=== PATIENT | female | born 1940 | race Caucasian/White ===

== ENCOUNTER 2018-01-06 15:18 | Emergency (ER) | payer MEDICARE ==
[2018-01-06 15:32] VITALS: BP 148/91; TEMP 96.9
--- NOTE | 2018-01-06 15:38 | ED ---
General Adult HPI - General Chief complaint: Fall Stated complaint: Fall Time Seen by Provider: 01/06/18 15:21 Source: patient, family Mode of arrival: EMS Limitations: altered mental status - History of Present Illness Initial comments: Patient 77-year-old female seen a few past medical history for dementia, presents into the emergency room today by EMS from [facility] with a chief complaint of a fall. Son at bedside providing history as patient does have history of dementia. He states that he was told by nursing staff that she tripped over a wheelchair. States that she did have a fall previously to the left hip and nursing staff was worried that she was having discomfort in this area. Patient essentially nonverbal and unable to provide further information. - Related Data Home Medications Medication Instructions Recorded Confirmed Aspirin 81 mg PO DAILY@0900 06/09/15 01/06/18 Atorvastatin [Lipitor] 20 mg PO DAILY@209906/09/15 01/06/18 Memantine HCl [Namenda Xr] 28 mg PO DAILY@0900 06/09/15 01/06/18 Multivitamins, Thera [Multivitamin 1 tab PO DAILY@0900 06/09/15 01/06/18 (formulary)] Donepezil [Aricept] 10 mg PO DAILY@209904/26/16 01/06/18 Acetaminophen [Tylenol 8 Hour] 650 mg PO TID 01/06/18 01/06/18 Acetaminophen [Tylenol Arthritis] 650 mg PO Q6H PRN 01/06/18 01/06/18 Cranberry Fruit Concentrate 450 mg PO DAILY@0900 01/06/18 01/06/18 [Cranberry] Lactose-Reduced Food [Ensure Plus] 1 can PO BID@1000,1500 01/06/18 01/06/18 Lactulose 20 gm PO Q12H PRN 01/06/18 01/06/18 Loratadine [Claritin] 10 mg PO DAILY PRN 01/06/18 01/06/18 Melatonin 3 mg PO HS@209901/06/18 01/06/18 busPIRone HCl [Buspar] 5 mg PO BID@0900,2100 01/06/18 01/06/18 Allergies Allergy/AdvReac Type Severity Reaction Status Date / Time No Known Allergies Allergy Verified 01/06/18 15:30 Review of Systems ROS Statement: Those systems with pertinent positive or pertinent negative responses have been documented in the HPI. ROS Other: All systems not noted in ROS Statement are negative. Past Medical History Past Medical History: Dementia, Hyperlipidemia, Hypertension, Neurologic Disorder History of Any Multi-Drug Resistant Organisms: None Reported Past Surgical History: Back Surgery Additional Past Surgical History / Comment(s): laminectomy 35 years ago Past Psychological History: Depression Smoking Status: Never smoker Past Alcohol Use History: None Reported Past Drug Use History: None Reported - Past Family History Mother Family Medical History: Dementia Additional Family Medical History / Comment(s): at 93yo Father Family Medical History: Coronary Artery Disease (CAD), Myocardial Infarction ([place] ) Additional Family Medical History / Comment(s): at 83yo General Exam - General Exam Comments Initial Comments: General: The patient is awake and alert. Eye: Pupils are equal, round and reactive to light, extra-ocular movements are intact. No nystagmus. There is normal conjunctiva bilaterally. No signs of icterus. Ears, nose, mouth and throat: There are moist mucous membranes and no oral lesions. Neck: The neck is supple. Cardiovascular: There is a regular rate and rhythm. No murmur, rub or gallop is appreciated. Respiratory: Lungs are clear to auscultation, respirations are non-labored, breath sounds are equal. No wheezes, stridor, rales, or rhonchi. Musculoskeletal: Normal ROM. Tender over T3-T4. No Tenderness to the lumbar or cervical spine. Strength 5/5. Sensation intact. Pulses equal bilaterally 2+. Neurological: There are no obvious motor or sensory deficits. Coordination appears grossly intact. Skin: Skin is warm and dry and no rashes or lesions are noted. Limitations: altered mental status Course Vital Signs 01/06/18 01/06/18 15:22 17:28 Temperature 96.9 F L Pulse Rate 87 63 Respiratory 18 20 Rate Blood Pressure 148/91 O2 Sat by Pulse 98 97 Oximetry Procedures - Procedures Initial comment: Laceration to the chin measuring approximately half centimeter. Was cleaned with saline and closed with Dermabond. Medical Decision Making - Medical Decision Making Patient's CT of the head and neck are negative for any abnormality. X-rays of the hip, thoracic and lumbar spine also reviewed and negative for any acute abnormalities. Patient has been Amer for here in the emergency room. Patient will be discharged home. Disposition Clinical Impression: Fall Disposition: HOME SELF-CARE Condition: Good Instructions: Laceration (ED) Additional Instructions: Please allow glue to fall off on its own over the next 2-5 days. Please follow- up with family doctor in the next 2 days. Please return to emergency room if the symptoms increase or worsen or for any other concerns. Is patient prescribed a controlled substance at d/c from ED?: No Referrals: Tommy Ocampo DO [Primary Care Provider] - 1-2 days Time of Disposition: 17:49
[2018-01-06] MEDS ORDERED: LORazepam 1 MG TAB PO STA (16:15)
--- NOTE | 2018-01-06 17:11 | CT ---
EXAMINATION TYPE: CT brain ruperto baum DATE OF EXAM: 01/06/2018 COMPARISON: CT brain 06/09/2015 HISTORY: Fell and hit head today. Headache. Neck pain CT DLP: 1278.4 mGycm Automated exposure control for dose reduction was used. TECHNIQUE: CT scan of the head and cervical spine are performed without contrast. FINDINGS: There is cerebral atrophy. There is no mass effect nor midline shift. There is no sign of intracranial hemorrhage. The calvarium is intact. The cervical vertebra have normal alignment. There is narrowing of disc spaces throughout the cervica l spine with spurring of the endplates. Posterior elements are intact. The skull base is intact. Ther e is no evidence of a fracture. There is probably mild spinal stenosis at C5-6 C6-7 due to posterior endplate spur formation. IMPRESSION: Cerebral atrophy. No acute intracranial abnormality. No change. Spondylotic changes in the cervical spine. No fracture.
[2018-01-06 17:29] VITALS: PULSE 63; RESP 20
--- NOTE | 2018-01-06 17:30 | XR ---
EXAMINATION TYPE: XR Hip LT and AP Pelvis DATE OF EXAM: 01/06/2018 COMPARISON: NONE HISTORY: Pain after fall TECHNIQUE: 3 views including pelvis x-ray FINDINGS: The pelvic ring is intact. Proximal femurs are intact. Sacroiliac joints are intact. Hip joint spaces are fairly well-maintained. I see no fracture. Impression no acute abnormality of the pelvis and left hip. No fracture.
--- NOTE | 2018-01-06 17:31 | XR ---
EXAMINATION TYPE: XR thoracic spine complete DATE OF EXAM: 01/06/2018 COMPARISON: NONE HISTORY: Pain after a fall back pain TECHNIQUE: 3 views FINDINGS: Thoracic vertebra have normal alignment. Disc spaces are fairly normal for age. Posterior e lements are intact. There is no paraspinal mass. I see no compression fracture. IMPRESSION: Negative thoracic spine exam.
--- NOTE | 2018-01-06 17:31 | XR ---
EXAMINATION TYPE: XR lumbar spine 2 or 3V DATE OF EXAM: 01/06/2018 COMPARISON: NONE HISTORY: Pain after fall TECHNIQUE: 3 views FINDINGS: There is almost 1 cm anterior subluxation of L4 in relation L5. There is degenerative disc space narrowing at L4-5 L5-S1 with vacuum disc. I see no compression fracture. The sacroiliac joints are intact. IMPRESSION: Spondylotic changes. Degenerative first-degree L4-5 spondylolisthesis. No fracture seen.
[2018-01-06] MEDS ORDERED: TOPICAL SKIN ADHESIVE 1 EACH AMP TOPICAL ONE (17:40)
== END 2018-01-06 18:38 | disposition home or self-care (01) ==
LOC: EC 15:18
DX: S01.81XA Laceration without foreign body of other part of head, initial encounter (principal); R41.82 Altered mental status, unspecified; E78.5 Hyperlipidemia, unspecified; I10 Essential (primary) hypertension; F03.90 Unspecified dementia, unspecified severity, without behavioral disturbance, psychotic disturbance, mood disturbance, and anxiety; Z79.82 Long term (current) use of aspirin; Z79.891 Long term (current) use of opiate analgesic; Z79.899 Other long term (current) drug therapy; W18.09XA Striking against other object with subsequent fall, initial encounter; Y92.099 Unspecified place in other non-institutional residence as the place of occurrence of the external cause
CPT/HCPCS: 12011; 70450; 72072; 72100; 72125; 73502; 99284

== ENCOUNTER 2018-09-12 11:25 | Emergency (ER) | payer MEDICARE, OTHER ==
[2018-09-12 11:48] VITALS: RESP 18; TEMP 97.1
[2018-09-12] MEDS ORDERED: SODIUM CHLORIDE 0.9% 500 ML 500 ML IV ONE (12:01)
--- NOTE | 2018-09-12 12:05 | ED ---
General Adult HPI - General Chief complaint: Neuro Symptoms/Deficit Stated complaint: Poss seizure Time Seen by Provider: 09/12/18 11:30 Source: EMS, RN notes reviewed Mode of arrival: EMS Limitations: no limitations - History of Present Illness Initial comments: This is a 78 her old female presents emergency department via EMS. According to the report from the snf patient is nonverbal so she is not able to contribute to her history. [facility] sent her in because yesterday she had some shaking of her legs and she slid down before she never lost consciousness and never hit her head or neck. Today she is more altered and combative so they decided to send her in. No one is with the patient give any further history at this time. - Related Data Home Medications Medication Instructions Recorded Confirmed Aspirin 81 mg PO DAILY@0900 06/09/15 09/12/18 Atorvastatin [Lipitor] 20 mg PO DAILY@2100 06/09/15 09/12/18 Memantine HCl [Namenda Xr] 28 mg PO DAILY@0900 06/09/15 09/12/18 Multivitamins, Thera [Multivitamin 1 tab PO DAILY@0900 06/09/15 09/12/18 (formulary)] Donepezil [Aricept] 10 mg PO DAILY@2100 04/26/16 09/12/18 Acetaminophen [Tylenol 8 Hour] 650 mg PO TID 01/06/18 09/12/18 Melatonin 3 mg PO HS@209901/06/18 09/12/18 busPIRone HCl [Buspar] 5 mg PO BID@0900,2100 01/06/18 09/12/18 Acetaminophen-Codeine 300-30mg 1 tab PO TID PRN 09/12/18 09/12/18 [Tylenol w/codeine #3] Diclofenac Sodium [Voltaren Gel] 2 gram TOPICAL Q12H PRN 09/12/18 09/12/18 Allergies Allergy/AdvReac Type Severity Reaction Status Date / Time No Known Allergies Allergy Verified 09/12/18 11:57 Review of Systems ROS Statement: Those systems with pertinent positive or pertinent negative responses have been documented in the HPI. ROS Other: All systems not noted in ROS Statement are negative. Past Medical History Past Medical History: Dementia, Hyperlipidemia, Hypertension, Neurologic Disorder History of Any Multi-Drug Resistant Organisms: ESBL Date of last positivie culture/infection: 08/16/18 MDRO Source:: ESBL URINE Past Surgical History: Back Surgery Additional Past Surgical History / Comment(s): laminectomy 35 years ago Past Psychological History: Depression Smoking Status: Never smoker Past Alcohol Use History: None Reported Past Drug Use History: None Reported - Past Family History Mother Family Medical History: Dementia Additional Family Medical History / Comment(s): at 93yo Father Family Medical History: Coronary Artery Disease (CAD), Myocardial Infarction ([place] ) Additional Family Medical History / Comment(s): at 83yo General Exam - General Exam Comments Initial Comments: GENERAL: Patient is well-developed and well-nourished. Patient is nontoxic and well- hydrated and is in no acute distress. ENT: Neck is soft and supple. No significant lymphadenopathy is noted. Oropharynx is clear. Moist mucous membranes. Neck has full range of motion without eliciting any pain. EYES: The sclera were anicteric and conjunctiva were pink and moist. Extraocular movements were intact and pupils were equal round and reactive to light. Eyelids were unremarkable. PULMONARY: Unlabored respirations. Good breath sounds bilaterally. No audible rales rhonchi or wheezing was noted. CARDIOVASCULAR: There is a regular rate and rhythm without any murmurs gallops or rubs. ABDOMEN: Soft and nontender with normal bowel sounds. No palpable organomegaly was noted. There is no palpable pulsatile mass. SKIN: Skin is clear with no lesions or rashes and otherwise unremarkable. NEUROLOGIC: Patient is alert and oriented 0. Cranial nerves II through XII are grossly intact. Motor and sensory are also intact. patient does not speak. Symmetrical smile. MUSCULOSKELETAL: Normal extremities with adequate strength and full range of motion. No lower extremity swelling or edema. No calf tenderness. LYMPHATICS: No significant lymphadenopathy is noted PSYCHIATRIC: Normal psychiatric evaluation. Limitations: no limitations Course Vital Signs 09/12/18 09/12/18 11:29 14:26 Temperature 97.1 F L Pulse Rate 74 82 Respiratory 18 18 Rate Blood Pressure 113/74 120/54 O2 Sat by Pulse 100 100 Oximetry Medical Decision Making - Medical Decision Making EKG shows normal sinus rhythm at 79 bpm [place] interval is 160 QRS is 90 QT intervals 408 QTC is 467. Patient's EKG shows no ST segment elevation or depression however patient does have Q waves in inferior leads. Family showed up and I spoke with the and he indicated to me that this is part of the patient's dementia where she'll have times when she will not be at her baseline and affect more confused than normal. prefers that the patient go back to [facility] at this point since we have found no acute cause of the patient's altered mental status. - Lab Data Result diagrams: 09/12/18 12:40 09/12/18 12:40 Lab Results 09/12/18 09/12/18 09/12/18 Range/Units 12:40 12:40 12:40 WBC 6.3 (3.8-10.6) k/uL RBC 3.91 (3.80-5.40) m/uL Hgb 12.7 (11.4-16.0) gm/dL Hct 37.7 (34.0-46.0) % MCV 96.4 (80.0-100.0) fL MCH 32.5 (25.0-35.0) pg MCHC 33.7 (31.0-37.0) g/dL RDW 13.4 (11.5-15.5) % Plt Count 267 (150-450) k/uL Neutrophils % 69 % Lymphocytes % 20 % Monocytes % 5 % Eosinophils % 4 % Basophils % 1 % Neutrophils # 4.4 (1.3-7.7) k/uL Lymphocytes # 1.3 (1.0-4.8) k/uL Monocytes # 0.3 (0-1.0) k/uL Eosinophils # 0.3 (0-0.7) k/uL Basophils # 0.0 (0-0.2) k/uL PT (9.0-12.0) sec INR (<1.2) APTT (22.0-30.0) sec Sodium 143 (137-145) mmol/L Potassium 4.5 (3.5-5.1) mmol/L Chloride 111 H (98-107) mmol/L Carbon Dioxide 24 (22-30) mmol/L Anion Gap 8 mmol/L BUN 18 H (7-17) mg/dL Creatinine 0.79 (0.52-1.04) mg/dL Est GFR (CKD-EPI)AfAm 85 (>60 ml/min/1.73 sqM) Est GFR (CKD-EPI)NonAf 74 (>60 ml/min/1.73 sqM) Glucose 90 (74-99) mg/dL Calcium 10.0 (8.4-10.2) mg/dL Total Bilirubin 0.5 (0.2-1.3) mg/dL AST 24 (14-36) U/L ALT 31 (9-52) U/L Alkaline Phosphatase 126 (38-126) U/L Total Creatine Kinase 143 H (30-135) U/L CK-MB (CK-2) 3.3 H (0.0-2.4) ng/mL CK-MB (CK-2) Rel Index 2.3 Troponin I <0.012 (0.000-0.034) ng/mL Total Protein 6.1 L (6.3-8.2) g/dL Albumin 3.7 (3.5-5.0) g/dL Urine Color Urine Appearance (Clear) Urine pH (5.0-8.0) Ur Specific Drasco (1.001-1.035) Urine Protein (Negative) Urine Glucose (UA) (Negative) Urine Ketones (Negative) Urine Blood (Negative) Urine Nitrite (Negative) Urine Bilirubin (Negative) Urine Urobilinogen (<2.0) mg/dL Ur Leukocyte Esterase (Negative) Urine RBC (0-5) /hpf Urine WBC (0-5) /hpf Urine WBC Clumps (None) /hpf Ur Squamous Epith Cells (0-4) /hpf Amorphous Sediment (None) /hpf Urine Bacteria (None) /hpf Hyaline Casts (0-2) /lpf Urine Mucus (None) /hpf Urine Opiates Screen (NotDetected) Ur Oxycodone Screen (NotDetected) Urine Methadone Screen (NotDetected) Ur Propoxyphene Screen (NotDetected) Ur Barbiturates Screen (NotDetected) U Tricyclic Antidepress (NotDetected) Ur Phencyclidine Scrn (NotDetected) Ur Amphetamines Screen (NotDetected) U Methamphetamines Scrn (NotDetected) U Benzodiazepines Scrn (NotDetected) Urine Cocaine Screen (NotDetected) U Marijuana (THC) Screen (NotDetected) 09/12/18 09/12/18 Range/Units 12:40 12:40 WBC (3.8-10.6) k/uL RBC (3.80-5.40) m/uL Hgb (11.4-16.0) gm/dL Hct (34.0-46.0) % MCV (80.0-100.0) fL MCH (25.0-35.0) pg MCHC (31.0-37.0) g/dL RDW (11.5-15.5) % Plt Count (150-450) k/uL Neutrophils % % Lymphocytes % % Monocytes % % Eosinophils % % Basophils % % Neutrophils # (1.3-7.7) k/uL Lymphocytes # (1.0-4.8) k/uL Monocytes # (0-1.0) k/uL Eosinophils # (0-0.7) k/uL Basophils # (0-0.2) k/uL PT 10.4 (9.0-12.0) sec INR 1.0 (<1.2) APTT 20.9 L (22.0-30.0) sec Sodium (137-145) mmol/L Potassium (3.5-5.1) mmol/L Chloride (98-107) mmol/L Carbon Dioxide (22-30) mmol/L Anion Gap mmol/L BUN (7-17) mg/dL Creatinine (0.52-1.04) mg/dL Est GFR (CKD-EPI)AfAm (>60 ml/min/1.73 sqM) Est GFR (CKD-EPI)NonAf (>60 ml/min/1.73 sqM) Glucose (74-99) mg/dL Calcium (8.4-10.2) mg/dL Total Bilirubin (0.2-1.3) mg/dL AST (14-36) U/L ALT (9-52) U/L Alkaline Phosphatase (38-126) U/L Total Creatine Kinase (30-135) U/L CK-MB (CK-2) (0.0-2.4) ng/mL CK-MB (CK-2) Rel Index Troponin I (0.000-0.034) ng/mL Total Protein (6.3-8.2) g/dL Albumin (3.5-5.0) g/dL Urine Color Yellow Urine Appearance Cloudy H (Clear) Urine pH 7.5 (5.0-8.0) Ur Specific [place] 1.013 (1.001-1.035) Urine Protein 1+ H (Negative) Urine Glucose (UA) Negative (Negative) Urine Ketones Negative (Negative) Urine Blood Small H (Negative) Urine Nitrite Negative (Negative) Urine Bilirubin Negative (Negative) Urine Urobilinogen <2.0 (<2.0) mg/dL Ur Leukocyte Esterase Negative (Negative) Urine RBC 36 H (0-5) /hpf Urine WBC 14 H (0-5) /hpf Urine WBC Clumps Rare H (None) /hpf Ur Squamous Epith Cells 1 (0-4) /hpf Amorphous Sediment Few H (None) /hpf Urine Bacteria Rare H (None) /hpf Hyaline Casts 4 H (0-2) /lpf Urine Mucus Few H (None) /hpf Urine Opiates Screen Not Detected (NotDetected) Ur Oxycodone Screen Not Detected (NotDetected) Urine Methadone Screen Not Detected (NotDetected) Ur Propoxyphene Screen Not Detected (NotDetected) Ur Barbiturates Screen Not Detected (NotDetected) U Tricyclic Antidepress Not Detected (NotDetected) Ur Phencyclidine Scrn Not Detected (NotDetected) Ur Amphetamines Screen Not Detected (NotDetected) U Methamphetamines Scrn Not Detected (NotDetected) U Benzodiazepines Scrn Not Detected (NotDetected) Urine Cocaine Screen Not Detected (NotDetected) U Marijuana (THC) Screen Not Detected (NotDetected) Disposition Clinical Impression: Altered mental status, Advanced dementia Disposition: HOME SELF-CARE Condition: Good Instructions (If sedation given, give patient instructions): Dementia (ED) Is patient prescribed a controlled substance at d/c from ED?: No Referrals: César Velazco MD [Primary Care Provider] - 1-2 days Time of Disposition: 14:12
[2018-09-12 12:56] LABS: Basophils % (A) 1 %; Eosinophils # (A) 0.3 k/uL (0-0.7); Eosinophils % (A) 4 %; HCT 37.7 % (34.0-46.0); HGB 12.7 gm/dL (11.4-16.0); Lymphocytes # (A) 1.3 k/uL (1.0-4.8); Lymphocytes % (A) 20 %; MCH 32.5 pg (25.0-35.0); MCHC 33.7 g/dL (31.0-37.0); MCV 96.4 fL (80.0-100.0); Mean Platelet Volume 6.6; Monocytes # (A) 0.3 k/uL (0-1.0); Monocytes % (A) 5 %; Neutrophils # (A) 4.4 k/uL (1.3-7.7); Neutrophils % (A) 69 %; Platelet Count 267 k/uL (150-450); RBC 3.91 m/uL (3.80-5.40); RDW 13.4 % (11.5-15.5); WBC 6.3 k/uL (3.8-10.6)
[2018-09-12 13:06] LABS: Albumin 3.7 g/dL (3.5-5.0); Amorphous Sediment,Urine Few /hpf; Appearance,Urine Cloudy (Clear); Bacteria,Urine Rare /hpf; Bilirubin,Urine Negative (Negative); Blood,Urine Small (Negative); Color,Urine Yellow; Glucose,Urine (UA) Negative (Negative); Hyaline Casts,Urine 4 /lpf (0-2); Ketones,Urine Negative (Negative); Leukocyte Esterase,Urine Negative (Negative); Mucus,Urine Few /hpf; Nitrite,Urine Negative (Negative); PH, Urine 7.5 (5.0-8.0); Potassium 4.5 mmol/L (3.5-5.1); Protein,Urine 1+ (Negative); RBC,Urine 36 /hpf (0-5); Specific Gravity,Urine 1.013 (1.001-1.035); Squamous Epithelial Cell,Urine 1 /hpf (0-4); Total Bilirubin 0.5 mg/dL (0.2-1.3); Total Protein 6.1 g/dL (6.3-8.2); Urobilinogen,Urine <2.0 mg/dL (<2.0); WBC,Urine 14 /hpf (0-5)
[2018-09-12 13:12] LABS: Amphetamine Screen,Urine Not Detected (NotDetected); Barbiturate Screen,Urine Not Detected (NotDetected); Benzodiazepines Screen,Urine Not Detected (NotDetected); Cocaine Screen,Urine Not Detected (NotDetected); Methadone Screen, Urine Not Detected (NotDetected); Opiate Screen,Urine Not Detected (NotDetected); Oxycodone Screen, Urine Not Detected (NotDetected); Phencyclidine Screen,Urine Not Detected (NotDetected); Tricyclic Antidepressant,Urine Not Detected (NotDetected); Urn Cannabinoid Scrn Not Detected (NotDetected)
[2018-09-12 13:25] LABS: Creatine Kinase 143 U/L (30-135); Prothrombin Time 10.4 sec (9.0-12.0)
--- NOTE | 2018-09-12 13:27 | CT ---
EXAMINATION TYPE: CT brain wo con DATE OF EXAM: 09/12/2018 COMPARISON: 01/06/2018 HISTORY: 78 year-old female altered mental status, confusion, Possible seizure TECHNIQUE: Examination was done in axial plane without intravenous contrast. Coronal and sagittal r econstructions performed. CT DLP: 1158.4 mGycm Automated exposure control for dose reduction was used. FINDINGS: There is no evidence of acute intracranial hemorrhage, acute ischemic changes, mass, mass-effect, or extra-axial fluid collection. There is no effacement of cerebral sulci or basal subarachnoid cister ns. There is no midline shift. Miranda-white matter distinction is preserved. Redemonstrated moderate generalized supratentorial volume loss and probable secondary mild ventriculo megaly, asymmetrically greater involving the left lateral ventricle. Frothy air-fluid level in the left maxillary sinus. Mastoid air cells well pneumatized. Orbits and gl obes appear intact. IMPRESSION: 1. Moderate generalized atrophy. Mild ventriculomegaly, left greater than right, is unchanged and lik paula on an ex vacuo basis. No acute intracranial abnormality seen. 2. Frothy air-fluid level left maxillary sinus. Correlate for acute sinusitis.
[2018-09-12 13:31] LABS: Partial Thromboplastin Time 20.9 sec (22.0-30.0)
[2018-09-12 13:37] LABS: Creatine Kinase MB 3.3 ng/mL (0.0-2.4); Troponin I <0.012 ng/mL (0.000-0.034)
--- NOTE | 2018-09-12 13:41 | XR ---
EXAMINATION TYPE: XR chest 2V DATE OF EXAM: 09/12/2018 COMPARISON: 04/26/2016 HISTORY: Possible seizure. Altered mental status. TECHNIQUE: Frontal and lateral views of the chest are obtained. FINDINGS: New left basilar focal airspace disease is seen as a patchy opacity. Chronic mild left hem idiaphragm elevation is noted. Cardia mediastinal silhouette is mildly enlarged. There is generalized osseous demineralization. Right lung remains clear. IMPRESSION: New patchy left basilar airspace disease that may represent atelectasis or pneumonia in the appropriate clinical setting.
[2018-09-12 14:44] VITALS: BP 120/54; PULSE 82
== END 2018-09-12 16:54 | disposition home or self-care (01) ==
LOC: EC 11:25
DX: R41.82 Altered mental status, unspecified (principal); F03.90 Unspecified dementia, unspecified severity, without behavioral disturbance, psychotic disturbance, mood disturbance, and anxiety; E78.5 Hyperlipidemia, unspecified; F32.9 Major depressive disorder, single episode, unspecified; Z79.82 Long term (current) use of aspirin; Z79.899 Other long term (current) drug therapy
CPT/HCPCS: 36415; 70450; 71046; 80053; 80306; 81001; 82550; 82553; 84484; 85025; 85610; 85730; 87086; 93005; 96360; 99284

== ENCOUNTER 2018-11-28 04:25 | Emergency (ER) | payer MEDICARE, OTHER ==
[2018-11-28 04:31] VITALS: BP 110/85; PULSE 80; RESP 18; TEMP 97.9
[2018-11-28 06:21] LABS: Basophils % (A) 0 %; Eosinophils # (A) 0.2 k/uL (0-0.7); Eosinophils % (A) 3 %; HCT 37.5 % (34.0-46.0); HGB 12.6 gm/dL (11.4-16.0); Lymphocytes # (A) 1.6 k/uL (1.0-4.8); Lymphocytes % (A) 25 %; MCH 31.6 pg (25.0-35.0); MCHC 33.7 g/dL (31.0-37.0); MCV 93.6 fL (80.0-100.0); Mean Platelet Volume 7.7; Monocytes # (A) 0.4 k/uL (0-1.0); Monocytes % (A) 6 %; Neutrophils # (A) 4.3 k/uL (1.3-7.7); Neutrophils % (A) 65 %; Platelet Count 241 k/uL (150-450); RDW 13.5 % (11.5-15.5); WBC 6.6 k/uL (3.8-10.6)
--- NOTE | 2018-11-28 06:22 | CT ---
EXAM: CT Head Without Intravenous Contrast CLINICAL HISTORY: Pain TECHNIQUE: Axial computed tomography images of the head/brain without intravenous contrast. CTDI is 50.8 mGy and DLP is 1217.4 mGy-cm. This CT exam was performed using one or more of the following dose reduction techniques: automated exposure control, adjustment of the mA and/or kV according to patient size, and/or use of iterative reconstruction technique. COMPARISON: 09/12/18 FINDINGS: No intracranial hemorrhage, abnormal intra- or extra-axial collections or parenchymal lesions are seen. There are involutional changes with prominence of the sulci, basal cisterns and ventricles. Scattered white matter hypoattenuations are present, likely from small vessel disease. The vazquez-white differentiation is preserved. No evidence of mass effect, midline shift, or edema. The osseous structures are unremarkable. Air-fluid levels again noted in the left maxillary sinus suggestive of acute sinusitis IMPRESSION: 1. No acute intracranial process. 2. Involutional changes with small vessel disease. No change compared to prior study
[2018-11-28 06:29] LABS: Calcium 10.1 mg/dL (8.4-10.2); Potassium 4.2 mmol/L (3.5-5.1)
--- NOTE | 2018-11-28 06:30 | XR ---
EXAM: XR Pelvis, 1 or 2 Views CLINICAL HISTORY: fall TECHNIQUE: Frontal view of the pelvis. COMPARISON: No relevant prior studies available. FINDINGS: Bones/joints: Unremarkable. No acute fracture. No dislocation. Soft tissues: Unremarkable. IMPRESSION: No displaced fracture identified on this single view.
--- NOTE | 2018-11-28 06:57 | ED ---
Fall HPI - General Chief Complaint: Fall Stated Complaint: Fall Time Seen by Provider: 11/28/18 05:03 Source: EMS Mode of arrival: EMS Limitations: physical limitation (Severe dementia) - History of Present Illness Initial Comments: This patient is a 78-year-old woman with history of severe dementia who is brought by EMS to be evaluated after possible fall. The patient was found lying on the floor near her bed. However she is not able to give any history she is nonverbal. Patient was not observed to fall. MD Complaint: other -: unknown - Related Data Home Medications Medication Instructions Recorded Confirmed Aspirin 81 mg PO DAILY@0900 06/09/15 09/12/18 Atorvastatin [Lipitor] 20 mg PO DAILY@209906/09/15 09/12/18 Memantine HCl [Namenda Xr] 28 mg PO DAILY@0900 06/09/15 09/12/18 Multivitamins, Thera [Multivitamin 1 tab PO DAILY@0900 06/09/15 09/12/18 (formulary)] Donepezil [Aricept] 10 mg PO DAILY@209904/26/16 09/12/18 Acetaminophen [Tylenol 8 Hour] 650 mg PO TID 01/06/18 09/12/18 Melatonin 3 mg PO HS@209901/06/18 09/12/18 busPIRone HCl [Buspar] 5 mg PO BID@0900,209901/06/18 09/12/18 Acetaminophen-Codeine 300-30mg 1 tab PO TID PRN 09/12/18 09/12/18 [Tylenol w/codeine #3] Diclofenac Sodium [Voltaren Gel] 2 gram TOPICAL Q12H PRN 09/12/18 09/12/18 Allergies Allergy/AdvReac Type Severity Reaction Status Date / Time No Known Allergies Allergy Verified 11/28/18 04:29 Review of Systems ROS Statement: Those systems with pertinent positive or pertinent negative responses have been documented in the HPI. ROS Other: All systems not noted in ROS Statement are negative. Limitations: ROS unobtainable due to patients medical condition (Severe dementia) Past Medical History Past Medical History: Dementia, Hyperlipidemia, Hypertension, Neurologic Disorde r History of Any Multi-Drug Resistant Organisms: ESBL Date of last positivie culture/infection: 08/16/18 MDRO Source:: ESBL URINE Past Surgical History: Back Surgery Additional Past Surgical History / Comment(s): laminectomy 35 years ago Past Psychological History: Depression Smoking Status: Never smoker Past Alcohol Use History: None Reported Past Drug Use History: None Reported - Past Family History Mother Family Medical History: Dementia Additional Family Medical History / Comment(s): at 93yo Father Family Medical History: Coronary Artery Disease (CAD), Myocardial Infarction ([place]) Additional Family Medical History / Comment(s): at 83yo General Exam Limitations: altered mental status General appearance: alert, in no apparent distress Head exam: Present: atraumatic, normocephalic, normal inspection Eye exam: Present: normal appearance, PERRL, EOMI. Absent: scleral icterus, conjunctival injection Neck exam: Present: normal inspection, full ROM. Absent: tenderness Respiratory exam: Present: normal lung sounds bilaterally. Absent: respiratory distress, wheezes, rales, rhonchi, stridor Cardiovascular Exam: Present: regular rate, normal rhythm, normal heart sounds. Absent: systolic murmur, diastolic murmur, rubs, gallop GI/Abdominal exam: Present: soft. Absent: distended, tenderness, guarding, rebound Extremities exam: Present: normal inspection, normal capillary refill. Absent: pedal edema, calf tenderness Back exam: Present: normal inspection. Absent: vertebral tenderness Neurological exam: Present: alert Skin exam: Present: warm, dry, intact, normal color. Absent: rash Course Vital Signs 11/28/18 04:25 Temperature 97.9 F Pulse Rate 80 Respiratory 18 Rate Blood Pressure 110/85 O2 Sat by Pulse 100 Oximetry Medical Decision Making - Medical Decision Making The patient's son has subsequently arrived and stated that the patient seems to be at her baseline. He is able to relates at least one other occasion when the patient appears to have had similar and they were also uncertain whether she fell. Patient's son believes that she finds herself out of bed she sometimes will lie on the floor. Following the evaluation, patient does not appear to be in any distress, and he would like to transfer her back to the extended care facility. - Lab Data Result diagrams: 11/28/18 06:08 11/28/18 06:08 Lab Results 11/28/18 11/28/18 Range/Units 06:08 06:08 WBC 6.6 (3.8-10.6) k/uL RBC 4.00 (3.80-5.40) m/uL Hgb 12.6 (11.4-16.0) gm/dL Hct 37.5 (34.0-46.0) % MCV 93.6 (80.0-100.0) fL MCH 31.6 (25.0-35.0) pg MCHC 33.7 (31.0-37.0) g/dL RDW 13.5 (11.5-15.5) % Plt Count 241 (150-450) k/uL Neutrophils % 65 % Lymphocytes % 25 % Monocytes % 6 % Eosinophils % 3 % Basophils % 0 % Neutrophils # 4.3 (1.3-7.7) k/uL Lymphocytes # 1.6 (1.0-4.8) k/uL Monocytes # 0.4 (0-1.0) k/uL Eosinophils # 0.2 (0-0.7) k/uL Basophils # 0.0 (0-0.2) k/uL Sodium 141 (137-145) mmol/L Potassium 4.2 (3.5-5.1) mmol/L Chloride 111 H (98-107) mmol/L Carbon Dioxide 25 (22-30) mmol/L Anion Gap 5 mmol/L BUN 18 H (7-17) mg/dL Creatinine 0.80 (0.52-1.04) mg/dL Est GFR (CKD-EPI)AfAm 83 (>60 ml/min/1.73 sqM) Est GFR (CKD-EPI)NonAf 72 (>60 ml/min/1.73 sqM) Glucose 89 (74-99) mg/dL Calcium 10.1 (8.4-10.2) mg/dL Disposition Clinical Impression: Fall Disposition: HOME SELF-CARE Condition: Fair Instructions (If sedation given, give patient instructions): Fall Prevention for Older Adults (ED) Is patient prescribed a controlled substance at d/c from ED?: No Referrals: César Velazco MD [Primary Care Provider] - 1-2 days
== END 2018-11-28 08:05 | disposition home or self-care (01) ==
LOC: EC 04:25
DX: Z04.3 Encounter for examination and observation following other accident (principal); F03.90 Unspecified dementia, unspecified severity, without behavioral disturbance, psychotic disturbance, mood disturbance, and anxiety; E78.5 Hyperlipidemia, unspecified; F32.9 Major depressive disorder, single episode, unspecified; Z98.890 Other specified postprocedural states; Z79.82 Long term (current) use of aspirin; Z79.899 Other long term (current) drug therapy
CPT/HCPCS: 36415; 70450; 72170; 80048; 85025; 99284

== ENCOUNTER 2019-07-15 07:59 | Emergency (ER) | payer MEDICARE, OTHER ==
[2019-07-15 08:05] VITALS: BP 131/72; PULSE 59; RESP 18; TEMP 97.5
--- NOTE | 2019-07-15 08:37 | ED ---
Fall HPI - General Chief Complaint: Fall Stated Complaint: fall Time Seen by Provider: 07/15/19 08:03 Source: EMS, RN notes reviewed Mode of arrival: EMS Limitations: altered mental status - History of Present Illness Initial Comments: This is a 78-year-old female presents emergency from from [facility] via EMS for evaluation of possible CAT scan after a fall out of bed. Patient apparently rolled out of bed. She is essentially nonverbal information is very limited primary given by EMS from staff from [facility]. Patient has no obvious injuries, no lacerations or abrasions noted. - Related Data Home Medications Medication Instructions Recorded Confirmed Aspirin 81 mg PO DAILY@0900 06/09/15 09/12/18 Atorvastatin [Lipitor] 20 mg PO DAILY@209906/09/15 09/12/18 Memantine HCl [Namenda Xr] 28 mg PO DAILY@0900 06/09/15 09/12/18 Multivitamins, Thera [Multivitamin 1 tab PO DAILY@0900 06/09/15 09/12/18 (formulary)] Donepezil [Aricept] 10 mg PO DAILY@209904/26/16 09/12/18 Acetaminophen [Tylenol 8 Hour] 650 mg PO TID 01/06/18 09/12/18 Melatonin 3 mg PO HS@209901/06/18 09/12/18 busPIRone HCl [Buspar] 5 mg PO BID@0900,209901/06/18 09/12/18 Acetaminophen-Codeine 300-30mg 1 tab PO TID PRN 09/12/18 09/12/18 [Tylenol w/codeine #3] Diclofenac Sodium [Voltaren Gel] 2 gram TOPICAL Q12H PRN 09/12/18 09/12/18 Allergies Allergy/AdvReac Type Severity Reaction Status Date / Time No Known Allergies Allergy Verified 07/15/19 08:05 Review of Systems ROS Statement: Those systems with pertinent positive or pertinent negative responses have been documented in the HPI. ROS Other: All systems not noted in ROS Statement are negative. Past Medical History Past Medical History: Dementia, Hyperlipidemia, Hypertension, Neurologic Disorder History of Any Multi-Drug Resistant Organisms: ESBL Date of last positivie culture/infection: 08/16/18 MDRO Source:: ESBL URINE Past Surgical History: Back Surgery Additional Past Surgical History / Comment(s): laminectomy 35 years ago Past Psychological History: Depression Smoking Status: Never smoker Past Alcohol Use History: None Reported Past Drug Use History: None Reported - Past Family History Mother Family Medical History: Dementia Additional Family Medical History / Comment(s): at 93yo Father Family Medical History: Coronary Artery Disease (CAD), Myocardial Infarction ([place]) Additional Family Medical History / Comment(s): at 83yo General Exam Limitations: altered mental status General appearance: alert, in no apparent distress Head exam: Present: atraumatic, normocephalic, normal inspection Eye exam: Present: normal appearance, PERRL, EOMI. Absent: scleral icterus, conjunctival injection, periorbital swelling ENT exam: Present: normal exam, normal oropharynx, mucous membranes moist Neck exam: Present: normal inspection, full ROM. Absent: tenderness, meningismus, lymphadenopathy Respiratory exam: Present: normal lung sounds bilaterally. Absent: respiratory distress, wheezes, rales, rhonchi, stridor Cardiovascular Exam: Present: regular rate, normal rhythm, normal heart sounds. Absent: systolic murmur, diastolic murmur, rubs, gallop, clicks GI/Abdominal exam: Present: soft, normal bowel sounds. Absent: distended, tenderness, guarding, rebound, rigid Neurological exam: Present: alert. Absent: oriented X3 Skin exam: Present: warm, dry, intact, normal color. Absent: rash Course Vital Signs 07/15/19 08:02 Temperature 97.5 F L Pulse Rate 59 L Respiratory 18 Rate Blood Pressure 131/72 O2 Sat by Pulse 97 Oximetry Medical Decision Making - Medical Decision Making CT of the brain and C-spine did not show any acute findings. Patient will be discharged return parameters were discussed. Disposition Clinical Impression: Fall Disposition: HOME SELF-CARE Condition: Stable Instructions (If sedation given, give patient instructions): Fall Prevention for Older Adults (ED) Additional Instructions: Please return to the Emergency Department if symptoms worsen or any other concerns. Is patient prescribed a controlled substance at d/c from ED?: No Referrals: César Velazco MD [Primary Care Provider] - 1-2 days Time of Disposition: 09:00
--- NOTE | 2019-07-15 08:47 | CT ---
EXAMINATION TYPE: CT brain ruperto vazquez con DATE OF EXAM: 07/15/2019 COMPARISON: Previous CT of the brain dated 11/28/2018. HISTORY: Fall CT DLP: 1452.1 mGycm Automated exposure control for dose reduction was used. TECHNIQUE: CT scan of the head and cervical spine are performed without contrast. FINDINGS: BRAIN: There are generalized changes of sulcal prominence and ventriculomegaly, compatible with atrop hic change. There is diffuse periventricular white matter lucency, compatible with chronic white tristan er ischemic change. There is no acute focal lesion, mass effect or midline shift identified. I do not see evidence of intracranial blood. There is an air-fluid level in the left maxillary sinus. Remainder the paranasal sinuses and mastoids are clear. The bony calvarium is intact. IMPRESSION: 1. NO ACUTE INTRACRANIAL ABNORMALITY. 2. ATROPHIC CHANGE. 3. CHRONIC WHITE MATTER ISCHEMIC CHANGE. 4. ACUTE LEFT MAXILLARY SINUSITIS. CERVICAL SPINE: There are 2 small irregular densities in the apical posterior segment of the left upp er lobe. The remainder the visualized lungs are clear. Prevertebral soft tissues are normal. There is a reversal of the normal cervical lordosis. Alignment is maintained. Atlantoaxial relationsh ips are normal. There is diffuse degenerative disc disease and hypertrophic spondylosis as well as uncovertebral join t disease with relative sparing of C2-3. There is mild, diffuse facet arthropathy. No definite protru ellis is seen. No fracture is identified. There is a sclerotic focus in the lateral aspect of the left clavicle. Statistically this is most lik paula a bone island.'s IMPRESSION: 1. NO ACUTE OSSEOUS LESION. 2. MODERATELY SEVERE DEGENERATIVE CHANGE. 3. SCLEROTIC FOCUS IN THE LATERAL ASPECT OF THE LEFT CLAVICLE, LIKELY REPRESENTING A BONE ISLAND. 4. 2, SMALL SUBPLEURAL DENSITIES IN THE APICAL POSTERIOR SEGMENT OF THE LEFT UPPER LOBE. A NONEMERGEN T CT SCAN OF THE CHEST WOULD BE SUGGESTED.
== END 2019-07-15 09:21 | disposition home or self-care (01) ==
LOC: EC 07:59
DX: Z04.3 Encounter for examination and observation following other accident (principal); F03.90 Unspecified dementia, unspecified severity, without behavioral disturbance, psychotic disturbance, mood disturbance, and anxiety; E78.5 Hyperlipidemia, unspecified; I10 Essential (primary) hypertension; F32.9 Major depressive disorder, single episode, unspecified; Z79.82 Long term (current) use of aspirin; Z79.891 Long term (current) use of opiate analgesic; Z79.899 Other long term (current) drug therapy; Z81.8 Family history of other mental and behavioral disorders; W06.XXXA Fall from bed, initial encounter; Y92.009 Unspecified place in unspecified non-institutional (private) residence as the place of occurrence of the external cause
CPT/HCPCS: 70450; 72125; 99284

== ENCOUNTER → 2019-08-15 | Outpatient (CLI) | payer MEDICARE, OTHER ==
--- NOTE | 2019-08-15 09:51 | CT ---
EXAMINATION TYPE: CT chest wo/w con DATE OF EXAM: 08/15/2019 COMPARISON: CT cervical spine July 15, 2019 HISTORY: prior abn CT CT DLP: 844 mGycm. Automated Exposure Control for Dose Reduction was Utilized. TECHNIQUE: CT scan of the thorax is performed following without and with IV Contrast, patient inject ed with 100 mL of Isovue 300. FINDINGS: Exam noted suboptimal as there is significant respiratory motion artifact degradation seen, this limits evaluation for subcentimeter nodularity. LUNGS: Focal scarring posterior lateral left upper lobe axial image 15 is less prominent from prior s tudy. There is however persistent more prominent roughly 1 cm spiculated opacity image [address] and identified on plain films. There is 4 mm nodule or nodular opacity superior aspect left lower lobe axial image 27. No definitive greater than 1 cm nodules. No pleural effusion or pneumothor ax is evident bilaterally. Mild linear scarring and/or atelectatic change in both bases. MEDIASTINUM: There are no greater than 1 cm hilar or mediastinal lymph nodes. No cardiomegaly or pe ricardial effusion is seen. Ascending aorta measures up to 3.6 cm in diameter image 31. There is mil d/moderate biatrial dilatation present. OTHER: Partial visualization of simple-appearing thin-walled cysts in both kidneys. There is dilatati on of the distal pancreatic duct at level of distal body and tail without obstructing mass clearly se en but this is concerning for discrete pancreatic mass and warrants follow-up. IMPRESSION: Suboptimal essentially nondiagnostic study for evaluating subcentimeter nodules. Signific ant motion artifact is present as patient is not cooperative. Consider repeat study if patient mental status improves. Pancreatic protocol contrast-enhanced CT or MRI also advised for follow-up if patie nt will cooperate.
== END | disposition home or self-care (01) ==
LOC: RADCTMAIN 07:37 → EEVIPCON 07:37
PROVIDERS: ATTEND Family Medicine
DX: R91.1 Solitary pulmonary nodule (principal); J98.4 Other disorders of lung; M89.8X5 Other specified disorders of bone, thigh
CPT/HCPCS: 82565; 84520; 71270; 36415; Q9967

== ENCOUNTER 2019-09-04 08:18 | Emergency (ER) | payer MEDICARE, OTHER ==
[2019-09-04 08:34] VITALS: TEMP 96.7
--- NOTE | 2019-09-04 08:44 | ED ---
General Adult HPI - General Chief complaint: Fall Stated complaint: Fall Time Seen by Provider: 09/04/19 08:26 Source: EMS, RN notes reviewed Mode of arrival: EMS Limitations: altered mental status, physical limitation - History of Present Illness Initial comments: Patient is a pleasantly demented 79-year-old female presenting to the emergency department following a fall. Patient reportedly fell out of her bed and struck the right side of her forehead. Patient has chronic confusion, and is reported to be at her baseline. Patient does not able to offer any significant information. - Related Data Home Medications Medication Instructions Recorded Confirmed Aspirin 81 mg PO DAILY@0900 06/09/15 07/15/19 Atorvastatin [Lipitor] 20 mg PO DAILY@209906/09/15 07/15/19 Memantine HCl [Namenda Xr] 28 mg PO DAILY@0900 06/09/15 07/15/19 Multivitamins, Thera [Multivitamin 1 tab PO DAILY@0900 06/09/15 07/15/19 (formulary)] Donepezil [Aricept] 10 mg PO DAILY@209904/26/16 07/15/19 Acetaminophen [Tylenol 8 Hour] 650 mg PO TID PRN 01/06/18 07/15/19 Melatonin 3 mg PO HS@209901/06/18 07/15/19 busPIRone HCl [Buspar] 2.5 mg PO BID@0900,209901/06/18 07/15/19 Acetaminophen-Codeine 300-30mg 1 tab PO TID PRN 09/12/18 07/15/19 [Tylenol w/codeine #3] Diclofenac Sodium [Voltaren Gel] 2 gram TOPICAL Q12H PRN 09/12/18 07/15/19 Cholecalciferol (Vitamin D3) 2,000 unit PO DAILY@0900 07/15/19 07/15/19 [Vitamin D3] Docusate Sodium [Dok] 100 mg PO BID@0900,209907/15/19 07/15/19 Lactose-Reduced Food [Ensure Plus] 1 can PO TID@1000,1400,2000 07/15/19 07/15/19 Allergies Allergy/AdvReac Type Severity Reaction Status Date / Time No Known Allergies Allergy Verified 07/15/19 09:13 Review of Systems ROS Statement: Those systems with pertinent positive or pertinent negative responses have been documented in the HPI. ROS Other: All systems not noted in ROS Statement are negative. Limitations: ROS unobtainable due to patients medical condition Past Medical History Past Medical History: Dementia, Hyperlipidemia, Hypertension, Neurologic Disorder History of Any Multi-Drug Resistant Organisms: ESBL Date of last positivie culture/infection: 08/16/18 MDRO Source:: ESBL URINE Past Surgical History: Back Surgery Additional Past Surgical History / Comment(s): laminectomy 35 years ago Past Psychological History: Depression Smoking Status: Never smoker Past Alcohol Use History: None Reported Past Drug Use History: None Reported - Past Family History Mother Family Medical History: Dementia Additional Family Medical History / Comment(s): at 93yo Father Family Medical History: Coronary Artery Disease (CAD), Myocardial Infarction ([place]) Additional Family Medical History / Comment(s): at 83yo General Exam Limitations: physical limitation General appearance: alert, in no apparent distress Head exam: Present: other (Minimal soft tissue swelling right forehead) Eye exam: Present: normal appearance, PERRL Neck exam: Present: normal inspection. Absent: tenderness Respiratory exam: Present: normal lung sounds bilaterally Cardiovascular Exam: Present: regular rate, normal rhythm GI/Abdominal exam: Present: soft. Absent: tenderness Extremities exam: Present: normal inspection, full ROM. Absent: tenderness Back exam: Present: normal inspection. Absent: vertebral tenderness Neurological exam: Present: alert, altered. Absent: motor sensory deficit Expanded Neurological exam: Present: protecting the airway, other (Limited verbal capability) Motor strength exam: RUE: 5, LUE: 5, RLE: 5, LLE: 5 Psychiatric exam: Present: normal affect, normal mood Skin exam: Present: normal color Course Vital Signs 09/04/19 08:27 Temperature 96.7 F L Pulse Rate 63 Respiratory 18 Rate Blood Pressure 108/65 O2 Sat by Pulse 100 Oximetry Medical Decision Making - Medical Decision Making Patient reevaluated and resting comfortably in bed. - Radiology Data Radiology results: report reviewed (Computed tomography scan of the brain and cervical spine reveal no acute abnormality. Atrophy.), image reviewed (Pelvis x-ray shows no acute fracture or dislocation. Rectal fecal ball. 1 view chest x-ray shows no acute process) Disposition Clinical Impression: Fall Disposition: HOME SELF-CARE Condition: Stable Instructions (If sedation given, give patient instructions): Fall Prevention for Older Adults (ED) Additional Instructions: Please follow-up with primary care physician in the next couple of days for recheck. Return for increased confusion, weakness, worsening symptoms or other concerns. Patient may benefit from enema. Is patient prescribed a controlled substance at d/c from ED?: No Referrals: César Velazco MD [Primary Care Provider] - 1-2 days Time of Disposition: 10:09
--- NOTE | 2019-09-04 09:39 | XR ---
EXAMINATION TYPE: XR chest 1V portable DATE OF EXAM: 09/04/2019 COMPARISON: 09/12/2018 HISTORY: Altered mental status and fall TECHNIQUE: Single frontal view of the chest is obtained. FINDINGS: There is no focal air space opacity, pleural effusion, or pneumothorax seen. Slight nodula r density at the left lung base remains unchanged from prior, recent CT was performed on 08/15/2019. T he cardiac silhouette size is enlarged and stable from the prior. There is diffuse osseous deminerali zation. Punctate sclerotic density of the left clavicle is unchanged. IMPRESSION: No acute process.
--- NOTE | 2019-09-04 09:41 | XR ---
EXAMINATION TYPE: XR pelvis AP view DATE OF EXAM: 09/04/2019 CLINICAL HISTORY: Fall with pelvic pain TECHNIQUE: A single AP view of the pelvis is obtained. COMPARISON: None. FINDINGS: The right hip and pelvis are rotated inward slightly limiting evaluation of the right geoffrey pelvis. There is diffuse osseous demineralization. There is no acute fracture/dislocation evident in the pelvis. The hip and sacroiliac joints appear symmetric and unremarkable. The overlying soft tis luz appears unremarkable. Calcified probable leiomyoma in the pelvis. Large rectal fecal ball measur es nearly 10 cm. IMPRESSION: 1. Diffuse osseous demineralization. No acute fracture or dislocation in the pelvis. 2. Large rectal fecal ball measuring nearly 10 cm.
--- NOTE | 2019-09-04 09:49 | CT ---
EXAMINATION TYPE: CT brain ruperto vazquez con DATE OF EXAM: 09/04/2019 COMPARISON: 07/13/2019 HISTORY: Fall, altered mental status, patient was found down. CT DLP: 1322.8 mGycm. Automated Exposure Control for Dose Reduction was Utilized. TECHNIQUE: CT scan of the head and cervical spine are performed without contrast. FINDINGS: There is no acute intracranial hemorrhage or midline shift identified. There is diffuse v entricular and sulcal prominence consistent with diffuse age-related cerebral atrophy. There is low- attenuation in the periventricular white matter consistent with chronic small vessel ischemic change. The globes are intact and the visualized sinuses are clear. There is reversal usual cervical lordosis with grade 1 anterolisthesis of C2 on C3 and C3 on C4. Post erior disc osteophyte complexes are seen at C5-C6 and C6-C7. Grade 1 anterolisthesis is also seen at C7 on T1. Multilevel uncovertebral hypertrophy and facet arthropathy are seen. Cervical spine is visu alized in its entirety from C1 through upper thoracic levels and demonstrates satisfactory vertebral body heights. Prevertebral soft tissue appears within normal limits. The C1-C2 articulation is unre markable. Scattered areas of subsegmental atelectasis and scarring in the left upper lung. IMPRESSION: 1. There is no acute fracture evident in the cervical spine. Moderate degenerative disc disease of th e cervical spine with multilevel malalignment is likely on a degenerative basis. Reversal usual cervi marc lordosis may be on the basis of muscular strain/spasm or patient positioning. 2. No acute intracranial hemorrhage or midline shift. There is diffuse age-related cerebral atrophy and chronic small vessel ischemic change noted.
[2019-09-04 11:20] VITALS: RESP 16
[2019-09-04 11:22] VITALS: BP 118/62; PULSE 60
== END 2019-09-04 11:23 | disposition home or self-care (01) ==
LOC: EC 08:18
DX: S09.90XA Unspecified injury of head, initial encounter (principal); M79.89 Other specified soft tissue disorders; E78.5 Hyperlipidemia, unspecified; F03.90 Unspecified dementia, unspecified severity, without behavioral disturbance, psychotic disturbance, mood disturbance, and anxiety; F32.9 Major depressive disorder, single episode, unspecified; I10 Essential (primary) hypertension; Z79.82 Long term (current) use of aspirin; Z79.899 Other long term (current) drug therapy; Z98.890 Other specified postprocedural states; W06.XXXA Fall from bed, initial encounter; Y92.009 Unspecified place in unspecified non-institutional (private) residence as the place of occurrence of the external cause
CPT/HCPCS: 70450; 71045; 72125; 72170; 99284